=== PATIENT | female | born 1990 | race Caucasian/White ===

== ENCOUNTER 2018-02-15 19:25 | Emergency (ER) | payer MEDICAID ==
[2018-02-15 19:50] LABS: BASOPHILS 0.1 % (0-2); EOSINOPHILS 2.1 % (0-7); HEMATOCRIT 41.2 % (36.0-48.0); HEMOGLOBIN 13.6 g/dL (12-16); IMMATURE GRANULOCYTES 0.2 % (0-5); LYMPHOCYTES 25.3 % (15-50); MCH 29.8 pg (26.0-34.0); MCV 90.4 fL (80.0-100.0); MEAN PLATELET VOLUME 10.1 fL (7.4-10.4); MONOCYTES 5.6 % (2-11); NEUTROPHILS 66.7 % (40-80); RBC 4.56 10x6/uL (4.00-5.40); RDW 14.9 % (11.5-14.5); WBC 10.4 10x3/uL (4.8-10.8)
[2018-02-15 20:35] LABS: HCG SERUM NEGATIVE (NEGATIVE)
[2018-02-15 20:40] LABS: PLATELET COUNT 294 10x3/uL (130-400)
[2018-02-15 20:40] LABS: APPEARANCE CLEAR (CLEAR); BILIRUBIN NEGATIVE (NEGATIVE); COLOR YELLOW (YELLOW); GLUCOSE NEGATIVE (NEGATIVE); KETONE NEGATIVE (NEGATIVE); NITRITE NEGATIVE (NEGATIVE); PROTEIN NEGATIVE (NEGATIVE); UROBILINOGEN NORMAL (NORMAL)
== END 2018-02-15 22:27 | disposition home or self-care (01) ==
LOC: D.ER 19:25
PROVIDERS: Emergency Medicine
DX: K59.00 Constipation, unspecified (principal); F17.200 Nicotine dependence, unspecified, uncomplicated